=== PATIENT | male | born 1990 | race Caucasian/White ===

== ENCOUNTER 2020-05-05 09:41 | Emergency (ER) | payer OTHER, MEDICAID ==
[~2020-05-05] VITALS: Ht 198.1 cm; Wt 159.1 kg
[2020-05-05 10:02] VITALS: BP 147/86; Ht 198.1 cm; Wt 159.1 kg
[2020-05-05] MEDS ORDERED: TENORMIN50 MG PO (10:05)
[2020-05-05] MEDS ORDERED: MOTRIN600 MG PEG (10:33)
== END 2020-05-05 11:33 | disposition home or self-care (01) ==
LOC: D.ER 09:41
DX: S46.212A Strain of muscle, fascia and tendon of other parts of biceps, left arm, initial encounter (principal); I10 Essential (primary) hypertension; X58.XXXA Exposure to other specified factors, initial encounter

== ENCOUNTER → 2020-05-17 15:46 | Outpatient (CLI) | payer BC ==
[2020-05-05 10:02] VITALS: BMI 40.5
[~2020-05-17 15:46] MED LIST: MOTRIN600 MG PEG; TENORMIN50 MG PO
== END | disposition home or self-care (01) ==
LOC: D.MRI 15:46
PROVIDERS: ATTEND Orthopaedic Surgery
DX: S46.212A Strain of muscle, fascia and tendon of other parts of biceps, left arm, initial encounter (principal)

== ENCOUNTER 2020-05-24 09:22 | Day surgery (SDC) | payer OTHER ==
[~2020-05-24] VITALS: Ht 198.1 cm; Wt 163.3 kg
--- NOTE | ~2020-05-24 | OP ---
PATIENT NAME: ISMA AGUILAR MEDICAL RECORD: [id number] :86 LOCATION:[facility] ADMISSION DATE: SURGEON: MARCELLUS DELGADILLO MD DATE OF OPERATION: 05/24/2020 PREOPERATIVE DIAGNOSIS: Left distal biceps tendon rupture. POSTOPERATIVE DIAGNOSIS: Left distal biceps tendon rupture. PROCEDURE PERFORMED: Left distal biceps tendon repair. INDICATIONS: Mr. Aguilar is a 29-year-old male who injured his left distal biceps approximately 3 weeks ago when he was moving a box at work. He sustained a distal biceps tendon rupture. This was confirmed on MRI. Arrangements made for him to come to the operating room today for operative repair. Risks, benefits and alternatives of surgery were discussed with the patient and consent was obtained. DESCRIPTION OF PROCEDURE: The patient was met in the holding area where his identity and confirmation of the procedure was performed. The left upper extremity was marked. He was taken to the operating room where he was placed supine on the operating table, and anesthesia was administered. Left upper extremity was prepped and draped in a sterile fashion. The patient received preoperative antibiotics and timeout was performed for initiating the case. A tourniquet was applied to the arm and the arm was exsanguinated. Total tourniquet time was 72 minutes. An incision was made just distal to the antecubital fossa. We incised through the skin and subcutaneous tissues, dissected down to the cephalic vein. The cephalic vein and lateral antebrachial cutaneous nerve were identified and retracted laterally. We continued our dissection deep to the radial tuberosity and at that point, we were able to palpate the stump of the biceps tendon. There was still a couple of fibers that were partially intact that were released and the stump was then able to be manipulated and retracted through the incision. Tissue was freed up from around the stump proximally to allow for full mobilization. The ends of the stump were then debrided and trimmed. We then began preparing the stump. A 1 cm space was left distally for sliding into the socket. Our Krackow suture began 1 cm proximal and ran a 3 cm crossing the tendon and then back down the other side extending 1 cm from the end of the tendon. We then placed a cross suture beginning at the very proximal end and running it down in a horizontal manner to the end of the tendon. The cross sutures were then taken out, passed through the button, and then brought back into the tendon and tied to the Cascade suture on each side. The button was held with some tension to allow for space and flipping the button after it was passed. These were tied on both sides and then the suture ends were passed through the tendon to decrease their prominence. With the tendon prepared, we then began preparing our socket at the radial tuberosity. The tuberosity was actually easily identified as well as some fibers from where the tendon had previously been attached. Our pin was placed and our alignment was confirmed under fluoroscopy. We then advanced the pin bicortically. It was overreamed proximally with a size 8 reamer as this was what the tendon was measuring. We then drilled through the far cortex with our reamer for the button. The wound was irrigated thoroughly with saline. Any bony debris was removed. We then placed the suture strands through the Beath needle, passed the Beath needle through the posterior forearm and a small incision was made at that level to allow for removal of the needle and suture strands. The elbow was then flexed and extended until the button was flipped on OPERATIVE REPORT [id number] ISMA AGUILAR the far cortex of the radial tuberosity. We confirmed its position on fluoroscopy and the tendon was noted to be tensioned and secured throughout range of motion. We were able to fully extend the arm and flex it without displacement. Final images were obtained that showed good positioning of our button. The wound was irrigated thoroughly with saline. The tourniquet was let down. Hemostasis was obtained. The deep tissues closed with Vicryl suture and the skin was closed with Monocryl. Steri-Strips were placed. The arm was covered with a sterile dressing. He was placed into a well-padded posterior splint and sling. He was then turned back over to anesthesia where he was awakened, extubated, and taken to recovery room in stable condition. POSTOPERATIVE PLAN: The patient is going to return home with his family today. He is to remain in the sling until followup. We will see him back in clinic in 2 weeks. ANESTHESIA: General with peripheral nerve block. COMPLICATIONS: None. ESTIMATED BLOOD LOSS: 5 mL. TRANSINT:[id number] Voice Confirmation ID: [id number] DOCUMENT ID: [id number] MARCELLUS DELGADILLO MD CC: [id number] DICTATION DATE: 05/24/201529 MEDICAL ASSISTANT: 05/25/20106 DEP SD 05/24/20 [facility] [address] [place] [address]
[2020-05-24 10:18] LABS: HEMATOCRIT 47.5 % (42.0-54.0); HEMOGLOBIN 16.2 g/dL (13.5-17.5); MCH 30.7 pg (26.0-34.0); MCHC 34.1 g/dL (31.0-37.0); MEAN PLATELET VOLUME 10.3 fL (7.4-10.4); RBC 5.28 10x6/uL (4.20-6.10); RDW 13.3 % (11.5-14.5); WBC 5.7 10x3/uL (4.8-10.8)
[2020-05-24 10:32] VITALS: Ht 198.1 cm; Wt 163.3 kg
== END 2020-05-24 17:20 | disposition home or self-care (01) ==
LOC: D.OPS 09:22
PROVIDERS: Anesthesiology; ATTEND Orthopaedic Surgery
DX: S46.212A Strain of muscle, fascia and tendon of other parts of biceps, left arm, initial encounter (principal); X58.XXXA Exposure to other specified factors, initial encounter; M79.602 Pain in left arm